=== PATIENT | female | born 1940 | race African-American/Black ===

== ENCOUNTER 2016-05-09 06:43 | Observation (INO) | payer MEDICARE ==
--- NOTE | ~2016-05-09 | HP ---
History And Physical [facility] [id number] [place]. [address] NAME: EVANGELISTA ALVAREZ : 42 STATUS : ADM Joanna PAT#: [id number] AGE: 75 ADM/REG DATE : 05/09/16 MR#: [id number] REPORT SERV DATE: 05/09/16 DICTATED BY: DIYA ARROYO DATE: 05/09/16 REPORT STATUS : Draft TRANSCRIBED BY: MODL DATE: 05/09/16 DATE OF ADMISSION: 05/09/2016 PRIMARY CARE PROVIDER: Micaela Bear, [facility]. ENDOVASCULAR: Mat Moreno M.D. CHIEF COMPLAINT: Chest pain. HISTORY OF PRESENT ILLNESS: A very pleasant 75-year-old black female with no known history of CAD, but followed by Dr. Mat Moreno for recently identified and reportedly small abdominal aortic aneurysm with recent visit and plan followup for re-evaluation in six months. The patient states that she awoke this morning with chest pain. She describes it as midsternal in nature, but wrapped around her thorax to her back. She states she had a similar episode approximately two weeks ago. There is no clear exertional component. She describes associated shortness of breath and nausea. Denies diaphoresis, dizziness, or belching. Chest pain at its most intense, rated 10/10. At time of interview in the ER, she is pain free. She states the episode lasted approximately 30 minutes in duration. She did not take anything prior to arrival. Her pain resolved prior to arrival. EMS was called, they provided four aspirin 81 mg. The patient confirms a personal history of stroke in 2006 with right-sided weakness. Denies history of NE, DVT, or pulmonary embolus. The patient denies any recent fever or chills. No palpitations. No syncopal episodes. Denies PND or orthopnea. PAST MEDICAL HISTORY: 1. Hypertension. 2. Dyslipidemia. 3. History of stroke in 2006 with right-sided weakness, on Plavix. 4. Hypothyroid, on replacement. 5. Emphysema. 6. COPD. 7. Anemia. 8. GERD. 9. Ongoing tobacco abuse. 10.Reports small AAA followed by Dr. Moreno with six month followup. 11.History of SBO. SURGICAL HISTORY: 1. Hysterectomy. 2. Appendectomy. 3. Right hip repair following a fall in 2012. SOCIAL HISTORY: She is single. Does not have any children. She is retired school admissions representative. She lives by herself with assistance from a nephew and family. She does not have a structured exercise routine. Continues to smoke 5-6 cigarettes per day and has smoked as History And Physical [facility] [address] [place]. [address] NAME: EVANGELISTA ALVAREZ : 42 STATUS : ADM Joanna PAT#: [id number] AGE: 75 ADM/REG DATE : 05/09/16 MR#: [id number] REPORT SERV DATE: 05/09/16 DICTATED BY: DIYA ARROYO DATE: 05/09/16 REPORT STATUS : Draft TRANSCRIBED BY: WARREN DATE: 05/09/16 much as a half pack per day for 50+ years. Denies alcohol or illicits. FAMILY HISTORY: No embolic events reported in first-degree relatives at an early age. A sister with a heart attack at 86, remains alive at 89. REVIEW OF SYSTEMS: A 14-point review of systems performed, significant for HPI. No other contributory diagnoses identified. ALLERGIES: NO KNOWN DRUG ALLERGIES. HOME MEDICINES: Folic acid 1 mg daily; carvedilol 12.5 mg twice daily; pravastatin 40 mg daily; levothyroxine 100 mcg daily; amlodipine 10 mg daily; clopidogrel 75 mg daily; albuterol MDI one puff every four hours p.r.n.; iron 325 three times daily; albuterol sulfate inhaler p.r.n.; omeprazole 20 mg daily; Symbicort 160/4.5 two puffs twice daily; Spiriva inhaler one capsule daily; theophylline, does not take; prednisone 10 mg daily; methotrexate 2.5 mg on Mondays; Maximum D3 10,000 units weekly. PHYSICAL EXAMINATION: VITAL SIGNS: Blood pressure 134/79, pulse 79, respirations 16, temperature 97.7, O2 saturation 100% on room air. Height 5 feet 7 inches. Weight 100 pounds (stated). GENERAL: Cooperative, in no apparent distress. HEENT: Pupils 2 mm, sclera nonicteric. Nares patent. Moist mucous membranes. No xanthelasma. NECK: Trachea midline, no thyromegaly. No JVD. No bruits. LYMPH: No cervical lymphadenopathy. No supraclavicular lymphadenopathy. RESPIRATORY: Unlabored respirations. Breath sounds clear bilaterally to posterior auscultation. No wheezes or rhonchi. CARDIOVASCULAR: Distant heart tones. No murmur, rub or gallop appreciated. ABDOMEN: Soft, nontender, nondistended, normal bowel sounds auscultated throughout. No organomegaly. EXTREMITIES: Mild contracture of right arm. Moves right leg without assist but minimally. Pedal pulses 1+ bilaterally. Bilateral leg pain and reports episodic edema. SKIN: Warm, dry extremities. No pallor or cyanosis. PSYCHIATRIC: Appropriate affect. Alert, oriented x3. LABORATORY DATA: Troponin 0.02 twice. Potassium 2.6 (repleted with 40 mEq). BUN 19, creatinine 0.79, glucose 96, magnesium 1.7. WBC 7.1, hemoglobin 15.5, hematocrit 43.7, platelet count 275,000. D-dimer 2.82. EKG: Sinus rhythm and sinus tach with PRWP. Echo 2008: EF 60%. No significant valvular disease. CTA of chest, severe emphysema. No PE. Concern instructed toward the apical thickening particularly on the right. There may be an underlying scar carcinoma, may wish to consider PET scan. Please note that the soft tissue mass compared to 2009 is relatively stable. However, the onset of pain is localized in this area, now raises concern that there may be a malignant transformation. History And Physical [address] [address] NAME: EVANGELISTA ALVAREZ : 42 STATUS : ADM Joanna PAT#: [id number] AGE: 75 ADM/REG DATE : 05/09/16 MR#: [id number] REPORT SERV DATE: 05/09/16 DICTATED BY: DIYA ARROYO DATE: 05/09/16 REPORT STATUS : Draft TRANSCRIBED BY: MODAntony DATE: 05/09/16 ASSESSMENT AND PLAN: 1. Chest pain. The patient with multiple risk factors. The patient's two troponins negative. EKG appears stable. The patient will be held n.p.o. after midnight since she was provided a meal in the ER which negates any further stress testing today. N.p.o. after midnight for MPI in the morning. Home if low risk, no ischemia. If anything suggestive of ischemia, Cardiology referral will be initiated. Otherwise, the patient will be asked to follow up with PCP and Dr. Moreno as previously scheduled. 2. Hypertension. Monitor blood pressure and continue home medications. 3. Dyslipidemia. Continue statin. 4. History of stroke. Safety measures in place. 5. Elevated D-dimer. CTA negative for PE with noted apical scarring. Follow up with PCP for further scan and evaluation as warranted, but we will check bilateral lower extremity venous ultrasound given patient's complaint of episodic edema and pain. Rule out DVT. 6. Hypokalemia. Repleted per electrolyte protocol. We will recheck with second troponin. MAXIMO/MODL Diya Arroyo, MSN, BUILD ENGINEER-BC / [id number] CC: DONALD Wright, BUILD ENGINEER-BC [facility]
[2016-05-09 06:16] LABS: BASOPHILS 0.1 %; BASOPHILS ABSOLUTE 0.01 10/3/uL (0.0-0.16); EOSINOPHILS 0.3 %; EOSINOPHILS ABSOLUTE 0.02 10/3/uL (0.0-0.53); ER CBC TAT 0 Hrs 05 MinsNP; HEMATOCRIT 43.7 % (36.0-48.0); HEMOGLOBIN 15.5 g/dL (12.0-16.0); IMMATURE GRANULOCYTES 0.6 %; IMMATURE GRANULOCYTES ABSOLUTE 0.04 10/3/uL (0.0-0.11); MANUAL DIFF NO %; MEAN CORPUS HGB CONC 35.5 g/dL (32.0-36.0); MEAN CORPUSCULAR VOLUME 98.6 fL (80-100); MONOCYTES 7.4 %; MONOCYTES ABSOLUTE 0.53 10/3/uL (0.21-1.20); NEUTROPHILS 77.6 %; NEUTROPHILS ABSOLUTE 5.52 10/3/uL (2.02-8.40); PLATELET COUNT 275 10/3/uL (150-400); RBC DISTRIBUTION WIDTH 14.9 % (12.0-16.0); RED CELL COUNT 4.43 10/6/uL (4.0-5.6); WHITE BLOOD CELLS 7.1 10/3/uL (4.5-10.5)
[2016-05-09 06:23] LABS: INTERNATIONAL NORMAL RATI 0.9 UNITS (-); PROTIME (NOT ORD) 12.1 SEC (12.0-14.5)
[2016-05-09 06:25] LABS: D-DIMER QUANTITATIVE 2.82 ug/mLFEU (< 0.50)
[2016-05-09 06:31] LABS: PARTIAL THROMBO TIME 22.4 SEC (22.5-37.2)
[2016-05-09 06:35] LABS: BUN (BLOOD UREA NITROGEN) 19 MG/DL (6-23); CALCIUM, SERUM 9.6 MG/DL (8.5-10.4); CHEST PAIN PROFILE TAT 0 Hrs 24 Mins; CHLORIDE, SERUM 103 MMOL/L (96-112); CO2 (CARBON DIOXIDE) 28 MMOL/L (24-34); CREATININE 0.79 MG/DL (0.55-1.02); GFR AFRICAN AMERICAN 85 ML/MIN (>=60); GFR NON AFRICAN AMERICAN 74 ML/MIN (>=60); GLUCOSE, SERUM 96 MG/DL (60-99); SODIUM, SERUM 144 MMOL/L (135-148); TROPONIN I <0.02 NG/ML (<0.05)
[2016-05-09 06:38] LABS: POTASSIUM, SERUM 2.6 MMOL/L (3.5-5.3)
[~2016-05-09 06:43] MED LIST: ASAB PO; CATAPRES3 TOP; COREG12 PO; DSS PO; FESO4 PO; FOLIC PO; LEVOTHYROXIN75 MCG PO; PLAVIX PO; PRILOSEC40 MG PO; PRIN20 PO; TRANDATE100 MG PO; ZOCOR40 PO
[2016-05-09] MEDS ORDERED: PRAVACHOL40 MG PO (10:51)
[2016-05-09] MEDS ORDERED: COREG12 PO (10:51)
[2016-05-09] MEDS ORDERED: FOLIC PO (10:51)
[2016-05-09] MEDS ORDERED: NORV10 PO (10:52)
[2016-05-09] MEDS ORDERED: LEVOTHYROXIN100 MCG PO (10:52)
[2016-05-09] MEDS ORDERED: PLAVIX PO (10:52)
[2016-05-09] MEDS ORDERED: ALBUTEROL0.63 MG/3 INH (10:53)
[2016-05-09] MEDS ORDERED: PROAIR HFA INH (10:53)
[2016-05-09] MEDS ORDERED: FERROUS SULF325 M1 PO (10:53)
[2016-05-09] MEDS ORDERED: SPIRIVA INH (10:54)
[2016-05-09] MEDS ORDERED: SYMBICORT 160/41 INH INH (10:54)
[2016-05-09] MEDS ORDERED: T100 PO (10:54)
[2016-05-09] MEDS ORDERED: PRILO PO (10:54)
[2016-05-09] MEDS ORDERED: P10 PO (10:55)
[2016-05-09] MEDS ORDERED: MTX2.5 PO (10:55)
[2016-05-09] MEDS ORDERED: MAXIMUM D3 PO (10:56)
== END 2016-05-10 16:13 | disposition home or self-care (01) ==
LOC: ER 06:43 → CDU1 11:54
PROVIDERS: Specialist
DX: R07.9 Chest pain, unspecified (principal); I10 Essential (primary) hypertension; E78.5 Hyperlipidemia, unspecified; E03.9 Hypothyroidism, unspecified; J44.9 Chronic obstructive pulmonary disease, unspecified; D64.9 Anemia, unspecified; K21.9 Gastro-esophageal reflux disease without esophagitis; I71.4 Abdominal aortic aneurysm, without rupture; F17.210 Nicotine dependence, cigarettes, uncomplicated; M06.9 Rheumatoid arthritis, unspecified; E87.6 Hypokalemia; E78.00 Pure hypercholesterolemia, unspecified; Z23 Encounter for immunization; Z82.49 Family history of ischemic heart disease and other diseases of the circulatory system; Z95.5 Presence of coronary angioplasty implant and graft; Z86.73 Personal history of transient ischemic attack (TIA), and cerebral infarction without residual deficits; Z90.710 Acquired absence of both cervix and uterus; Z90.49 Acquired absence of other specified parts of digestive tract; Z98.890 Other specified postprocedural states
CPT/HCPCS: 71010; 71275; 78452; 80048; 83735; 84132; 84484; 85025; 85379; 85610; 85730; 90662; 93005; 93017; 93970; 94640; 96365; 96366; 99285; A9270-GY; A9502; G0008; G0378; J0153; J0280; Q9967